=== PATIENT | female | born 1930 | race Caucasian/White ===

== ENCOUNTER 2016-08-03 08:27 | Outpatient (CLI) | payer MEDICARE, OTHER ==
[2016-08-03 09:15] LABS: eGFR (African) > 60; eGFR (Non-African) > 60
== END 2016-08-03 08:30 ==
LOC: LAB 08:27
PROVIDERS: ATTEND Family Medicine
DX: E78.00 Pure hypercholesterolemia, unspecified (principal)
CPT/HCPCS: 36415; 80053; 80061

== ENCOUNTER 2016-09-10 08:08 | Day surgery (SDC) | payer MEDICARE, OTHER ==
[~2016-09-10 08:08] MED LIST: LACTATED RINGERS 1,000 ML IV.SOLN IV ONE; PROPOFOL 200 MG/20 ML VIAL IV ONE; SALINE FLUSH 10 ML DISP.SYRIN IVF ONE
--- NOTE | 2016-09-11 09:40 | GI Report ---
REFERRING PHYSICIAN: Dr. Roc Mckeon [employer] HELPER MACHINE: Atif Palmer MD PROCEDURE MEDICATION: Propofol as per anesthesia. INDICATIONS: Patient is an 86-year-old woman with a family history of her brother dying of colon cancer. She also has had a number of polyps. She is referred for the above indications. She denies any change in her bowel habits. She occasionally has some blood with her stool, but she thinks that is a hemorrhoid. PROCEDURE PERFORMED: Colonoscopy with polypectomy. PROCEDURE: An Olympus video colonoscope was advanced to the rectum and slowly advanced all the way to the cecum. The appendiceal orifice was normal. In the ascending colon, the patient has 2 polyps. One is about 4 mm in size and sessile and the other is about 3 mm in size and sessile removed with electrocautery and submitted to pathology. The main part of the transverse colon and descending with some redundancy. No additional intraluminal lesions noted. A few diverticula in the descending and sigmoid colon. She does have some hemorrhoids. Patient tolerated the procedure well. FINDINGS: 1. Two ascending colon polyps removed. 2. Diverticular disease of sigmoid colon. RECOMMENDATIONS: 1. Continue high-fiber diet. 2. Pending the pathology of the polyp and her family history, consider re- looking at her colon in 5 years. cc: Dr. Roc SMITH
== END 2016-09-10 08:10 ==
LOC: OPSURG 08:08
PROVIDERS: ATTEND Internal Medicine Gastroenterology
DX: D12.2 Benign neoplasm of ascending colon (principal); K57.30 Diverticulosis of large intestine without perforation or abscess without bleeding; Z80.0 Family history of malignant neoplasm of digestive organs
CPT/HCPCS: 45385; 88305; J2704; J7120; S1016

== ENCOUNTER 2017-01-21 10:43 | Outpatient (CLI) | payer MEDICARE, OTHER ==
--- NOTE | 2017-01-21 13:53 | Diagnostic Imaging Report ---
TONY CLOUD [facility] [address] [facility] [address] [address] Report Submission Date: Jan 21, 2017 11:16:19 AM PHARMACEUTICAL REPRESENTATIVE Patient Study Name: RUBIN WILLIAM Date: Jan 21, 2017 10:52:54 AM PHARMACEUTICAL REPRESENTATIVE Modality Type: CR Gender: F Description: SPINE : 34 Institution: [facility] Physician: TONY CLOUD Examination: Plain film lumbar spine History: Back discomfort Findings: 3 views of the lumbar spine demonstrates osteopenia. Significant curvature to the right. Mild listhesis of L4 on L5. Osteophyte formation. No compression deformity. L4/L5 disc space narrowing. Facet degenerative changes. Impression: Curvature and multilevel degenerative changes. No compression deformity. If patient is experiencing neurologic symptoms, consider obtaining MRI. Electronically signed on Jan 21, 2017 11:16:19 AM PHARMACEUTICAL REPRESENTATIVE by: Tom SMITH
--- NOTE | 2017-01-21 13:54 | Diagnostic Imaging Report ---
TONY CLOUD [facility] [address] [facility] [address] [address] Report Submission Date: Jan 21, 2017 11:19:47 AM FRANCHISE FIELD CONSULTANT Patient Study Name: RUBIN WILLIAM Date: Jan 21, 2017 10:54:58 AM FRANCHISE FIELD CONSULTANT Modality Type: CR Gender: F Description: PELVIS : 34 Institution: [facility] Physician: TONY CLOUD Examination: Plain film hip/pelvis History: Hip discomfort Comparison exams: None provided Findings: 2 views of the hip demonstrate normal cortical margins. Mild superior acetabular spurring. No fracture. No dislocation. No soft tissue abnormality. Impression: No acute osseous abnormality. Electronically signed on Jan 21, 2017 11:19:47 AM FRANCHISE FIELD CONSULTANT by: Tom SMITH
== END 2017-01-21 10:44 ==
LOC: RAD 10:43
PROVIDERS: ATTEND Family Medicine
DX: M25.551 Pain in right hip (principal)
CPT/HCPCS: 72100; 73502

== ENCOUNTER 2017-03-11 07:03 | Day surgery (SDC) | payer MEDICARE, OTHER ==
[2017-03-11] MEDS ORDERED: LIDOCAINE HCL/PF 2% 100 MG/5 ML VIAL IJ ONE (08:00)
[2017-03-11] MEDS ORDERED: SALINE FLUSH 10 ML DISP.SYRIN IVF ONE (08:00)
[2017-03-11] MEDS ORDERED: PROPOFOL 200 MG/20 ML VIAL IV ONE (08:00)
[2017-03-11] MEDS ORDERED: LACTATED RINGERS 1,000 ML IV.SOLN IV ONE (08:00)
--- NOTE | 2017-03-12 15:52 | GI Report ---
REFERRING PHYSICIAN: Dr. Roc Mckeon PATHOLOGY SUPERVISOR: Atif Palmer MD PROCEDURE MEDICATION: Propofol as per anesthesia. 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 She does have a family history of colon cancer and she has had polyps in the past. Because of the high -grade dysplasia, she is referred for re-looking at her colon this year. She denies changes in bowel habits outside the tendency towards constipation. PROCEDURE PERFORMED: Colonoscopy with polypectomy. PROCEDURE: An Olympus video colonoscope was advanced to the rectum. She does have moderate diverticular disease of the sigmoid colon and descending colon and a slightly atonic redundant colon. It took some maneuvering to finally reach the cecum. The appendiceal orifice and ileocecal valve were normal. About 5 cm above the ileocecal valve, patient has this kind of a flat area still residual with kind of a little villous appearance to it that was removed with electrocautery. We appeared to remove it to the base. Careful inspection in the ascending colon saw no additional lesions. Transverse colon with some redundancy. Descending colon and sigmoid colon with diverticula but no intraluminal lesions were noted. She does have hemorrhoids. Patient tolerated the procedure well. FINDINGS: A sessile area about 5 cm above the ileocecal valve. There still was some residual there appeared to be which we removed with electrocautery and appeared to remove completely. RECOMMENDATIONS: 1. Pending the pathology, consider re-looking at her colon in 3 to 5 years. 2. High-fiber diet. 3. Follow up with Dr. Mckeon. cc: Dr. Roc SMITH
== END 2017-03-11 11:00 ==
LOC: OPSURG 07:03
PROVIDERS: ATTEND Internal Medicine Gastroenterology
DX: D12.2 Benign neoplasm of ascending colon (principal); K64.9 Unspecified hemorrhoids
CPT/HCPCS: 45385; 88305; J2001; J2704; J7120; S1016

== ENCOUNTER 2017-07-31 08:09 | Outpatient (CLI) | payer MEDICARE, OTHER ==
[2017-07-31 09:37] LABS: eGFR (African) > 60; eGFR (Non-African) > 60
== END 2017-07-31 08:10 ==
LOC: LAB 08:09
PROVIDERS: ATTEND Family Medicine
DX: E78.00 Pure hypercholesterolemia, unspecified (principal)
CPT/HCPCS: 36415; 80053; 80061

== ENCOUNTER 2017-08-14 09:59 | Outpatient (CLI) | payer MEDICARE, OTHER | END 2017-08-14 10:00 | LOC: RAD 09:59 | PROVIDERS: ATTEND Family Medicine | DX: Z78.0 Asymptomatic menopausal state (principal) | CPT/HCPCS: 77080 ==

== ENCOUNTER 2018-08-18 09:42 | Outpatient (CLI) | payer MEDICARE, OTHER ==
[2018-08-18 10:02] LABS: BASOPHILS % 0.5 % (0.0-1.5); NEUTROPHILS # 3.5 # k/uL (1.4-7.7)
[2018-08-18 11:02] LABS: eGFR (Non-African) > 60
[2018-08-18 11:03] LABS: HDL 57 mg/dL (>40)
--- NOTE | 2018-08-20 18:15 | Diagnostic Imaging Report ---
TONY CLOUD [facility] [address] [address] Report Submission Date: Aug 20, 2018 10:26:27 AM CDT Patient Study Name: RUBIN WILLIAM Date: Aug 18, 2018 3:17:00 PM CDT Modality Type: DEXA\OT Gender: F Description: DEXA : 34 Institution: [facility] Physician: TONY CLOUD Examination: Bone density History: Assess bone mineralization Comparison exams: 14 August 2017 Technique: DEXA protocol Findings: Average bone mineral density from L1 through L4: 1.027 grams cm2. T score: -1.3 Average bone mineral density of the left femoral neck: 0.790 grams cm2. T score: -1.8 Average bone mineral density of the right femoral neck: 0.779 grams cm2. T score: -1.9 Impression: Lumbar spine and hip osteopenia. Electronically signed on Aug 20, 2018 10:26:27 AM CDT by: Tom SMITH
== END 2018-08-18 09:44 ==
LOC: LAB 09:42
PROVIDERS: ATTEND Family Medicine
DX: K21.9 Gastro-esophageal reflux disease without esophagitis (principal); E78.00 Pure hypercholesterolemia, unspecified; R53.82 Chronic fatigue, unspecified; M81.0 Age-related osteoporosis without current pathological fracture
CPT/HCPCS: 36415; 77080; 80053; 80061; 84443; 85025